=== PATIENT | female | born 1995 | race African-American/Black ===

== ENCOUNTER 2020-03-28 14:44 | Emergency (ER) | payer MEDICAID ==
[~2020-03-28] VITALS: Ht 170.2 cm; Wt 78.0 kg
[2020-03-28 17:38] VITALS: BP 128/52
[2020-03-28] MEDS ORDERED: IBUPROFEN 600MG TABLET PO ONE (21:30)
== END 2020-03-28 22:03 | disposition home or self-care (01) ==
LOC: ER 14:44
DX: S09.90XA Unspecified injury of head, initial encounter (principal); M25.512 Pain in left shoulder; V49.9XXA Car occupant (driver) (passenger) injured in unspecified traffic accident, initial encounter; Y93.89 Activity, other specified; Y92.89 Other specified places as the place of occurrence of the external cause; Y99.8 Other external cause status
CPT/HCPCS: 73030; 81025; 93005; 99284